=== PATIENT | male | born 1945 | race Caucasian/White ===

== ENCOUNTER → 2024-02-02 17:19 | Outpatient (REF) | payer MEDICARE, BC, SELFPAY | LOC: MRI 3T 17:19 | PROVIDERS: ATTENDING PHYSICIAN Physical Medicine & Rehabilitation; FAMILY PHYSICIAN Family Medicine | DX: M54.16 Radiculopathy, lumbar region (principal) | CPT/HCPCS: 72158; A9575 ==

== ENCOUNTER → 2024-06-24 09:13 | Outpatient (REF) | payer MEDICARE, BC, SELFPAY | LOC: HWRCS 09:13 | PROVIDERS: ATTENDING PHYSICIAN Internal Medicine Cardiovascular Disease; FAMILY PHYSICIAN Family Medicine | DX: Z95.3 Presence of xenogenic heart valve (principal) | CPT/HCPCS: 93306 ==

== ENCOUNTER → 2025-02-07 08:08 | Outpatient (REF) | payer MEDICARE, BC, SELFPAY | LOC: HWRAD 08:08 | PROVIDERS: ATTENDING PHYSICIAN Family Medicine | DX: R05.9 Cough, unspecified (principal) | CPT/HCPCS: 71046 ==

== ENCOUNTER → 2025-02-21 07:14 | Outpatient (REF) | payer MEDICARE, BC, SELFPAY | LOC: HWRAD 07:14 | PROVIDERS: ATTENDING PHYSICIAN Family Medicine | DX: R05.9 Cough, unspecified (principal) | CPT/HCPCS: 71046 ==

== ENCOUNTER → 2025-03-16 14:35 | Outpatient (REF) | payer MEDICARE, BC, SELFPAY | LOC: HWRAD 14:35 | PROVIDERS: ATTENDING PHYSICIAN Family Medicine | DX: I50.33 Acute on chronic diastolic (congestive) heart failure (principal); I77.810 Thoracic aortic ectasia | CPT/HCPCS: 71046 ==

== ENCOUNTER → 2025-03-28 07:52 | Outpatient (REF) | payer MEDICARE, BC, SELFPAY | LOC: HWRAD 07:52 | PROVIDERS: ATTENDING PHYSICIAN Family Medicine | DX: I50.32 Chronic diastolic (congestive) heart failure (principal); I48.19 Other persistent atrial fibrillation; J90 Pleural effusion, not elsewhere classified | CPT/HCPCS: 71046 ==

== ENCOUNTER 2025-04-05 17:07 | Emergency (ER) | payer MEDICARE, BC, SELFPAY ==
[2025-04-05 17:11] VITALS: BP 159/74
--- NOTE | 2025-04-05 22:06 | ED.GENMED ---
History of Present Illness
General
Chief Complaint: Skin Surface Trauma
Source: patient
Exam Limitations: none
Time Seen by Provider: 04/05/25 21:22
Nursing documentation reviewed up to this point in time: agreed with
History of Present Illness
History of Present Illness:
Patient is an 80-year-old male presents today with skin tear to his right arm from around 12 PM. reports he is on Coumadin and it took a long time to stop the bleeding. She was afraid to change the dressing. His INR was done on Thursday it was
2.6.
Patient is unsure of his last tetanus.
Past History
Past History
ED Past Medical History: Arrthythmia, HTN and Hypercholesterolemia
ED Past Surgical History: Cardiac (Aortic valve replacement, ascending thoracic aortic aneurysm repair) and Orthopedic
Social History
Tobacco: Non-smoker
Alcohol: Occasional
Drug: None
Personal:
Living: with family
Phy Exam
General Physical Exam
General Presentation: no apparent distress
General age: appears stated age
General Skin: warm and dry
General Habitus: normal
General Mental: alert
General Hydration: appears well hydrated
Neurological Exam
Neurological Exam: alert and oriented x3
Musculoskeletal Exam
Musculoskeletal Exam: other (2 skin tears to right arm over elbow region + oozing of blood no bony tenderness full ROM )
Skin Exam
Skin Exam: normal color and warm/dry
Psychiatric Exam
Psychiatric Exam: normal mood/affect
Course
Vital Signs
Initial and Last Documented VS:
Initial Vital Signs
Temp Pulse Resp BP Pulse Ox
98.5 F 61 16 159/74 98
04/05/25 17:11 04/05/25 17:11 04/05/25 17:11 04/05/25 17:11 04/05/25 17:11
Last Documented Vital Signs
Temp Pulse Resp BP Pulse Ox
98.5 F 61 16 159/74 98
04/05/25 17:11 04/05/25 17:11 04/05/25 17:11 04/05/25 17:11 04/05/25 17:11
Procedures
Laceration Closure
Right Arm:
Status of Wound: clean and other (2 separate skin tears : 1 approx 3 cm , 2nd distal approx 5 cm )
Description of Wound Edges: sharp
Preparation: cleaned with saline
Type of Closure: other (gelfoam )
MDM/Problems Addressed
MDM/Problems Addressed:
Patient with 2 separate skin tears to right arm. He is on Coumadin and had oozing of blood. (2.6 was inr 3 d ago) Gelfoam was used to stop the bleeding and nonstick dressing applied wound care reviewed. Will give follow-up for wound center.
Tetanus updated no bony injury
Chronic conditions affecting care:
on coumadin for afib
*Pulse Oximetry
SaO2: 98
Oxygen Mode of Delivery: Room air
Patient hypoxic: no
*Critical Care Note
Total Time (30-74mins, 75-104mins- exclusive of procedures): Not Applicable
ED Attending Note
-
Portions of this chart may have been created with voice recognition software.� Occasional wrong word or��sound alike� substitutions may have occurred due to the inherent limitations of voice recognition software.
Discharge Plan
Departure
Patient Disposition: Home (Routine Discharge)
Date of Disposition: 04/05/25
Time of Disposition: 22:10
Patient with high blood pressure during this ER visit?: Yes
Condition: Fair
Covid-19: Not Applicable
Discharge Problem:
Skin tear
Instructions: [facility], BLOOD PRESSURE
Prescriptions:
No Action
gabapentin 300 MG capsule
300 mg PO BID
gabapentin 100 MG capsule
100 mg PO DAILY
Magnilife Pain Relieving Foot
1 applic topical DAILY
aspirin 81 MG tablet,delayed release (DR/EC)
81 mg PO DAILY Qty: 0 0RF
fluticasone propionate [24 Hour Allergy Relief] 15.8 ML spray,suspension
15.8 ml NS DAILY
rosuvastatin 10 MG tablet
5 mg PO QPM Qty: 60 0RF
potassium chloride [Klor-Con M20] 20 MEQ tablet,ER particles/crystals
10 meq PO DAILY
lidocaine 1 PATCH adhesive patch,medicated
1 patch topical DAILY Qty: 12 0RF
Rx Instructions:
ON FOR 12 HOURS, OFF FOR 12 HOURS
furosemide 40 MG tablet
60 mg PO DAILY
atenolol 25 MG tablet
12.5 mg PO HS
amoxicillin-pot clavulanate 875-125 mg tablet
1 tab PO BID Qty: 14 0RF
Referrals:
Heladio Parra MD [Family Provider, Family Practice]
Activity Restrictions/Additional Instructions:
Keep wounds clean and dry for 24 hours after 24 hours change the outer dressing but do not remove Gelfoam. This will fall off on its own. You may reapply nonstick dressing followed by gauze and Richy. Return if any signs of infection or bleeding.
Follow-up with family doctor and or wound care as needed.
Interventions
Interventions:
*Risk Screen - Suicide Last Done: 04/05/25 17:11
*General Assessment Last Done: 04/05/25 19:58
*Neglect/Abuse Screening Last Done: 04/05/25 17:11
ED-Skin Assessment Last Done: 04/05/25 19:58
Discharge Date and Time
Print Language: PUERTO RICAN
[2025-04-05] MEDS: ADACEL 0.5 ML IM (22:15)
== END 2025-04-05 22:24 | disposition home or self-care (01) ==
LOC: EMR 17:07
PROVIDERS: EMERGENCY PHYSICIAN Emergency Medicine; FAMILY PHYSICIAN Family Medicine
DX: S51.011A Laceration without foreign body of right elbow, initial encounter (principal); I48.91 Unspecified atrial fibrillation; I10 Essential (primary) hypertension; E78.00 Pure hypercholesterolemia, unspecified; Z23 Encounter for immunization; Z79.01 Long term (current) use of anticoagulants; Z79.82 Long term (current) use of aspirin; Z95.2 Presence of prosthetic heart valve; W22.09XA Striking against other stationary object, initial encounter; Y93.01 Activity, walking, marching and hiking
CPT/HCPCS: 99282; 90471; 90715

== ENCOUNTER → 2025-04-07 12:29 | Outpatient (REF) | payer MEDICARE, BC, SELFPAY | LOC: WOUND 12:29 | PROVIDERS: ATTENDING PHYSICIAN Surgery; FAMILY PHYSICIAN Family Medicine | DX: S51.011A Laceration without foreign body of right elbow, initial encounter (principal); X58.XXXA Exposure to other specified factors, initial encounter | CPT/HCPCS: 99202 ==

== ENCOUNTER → 2025-04-11 08:19 | Outpatient (REF) | payer MEDICARE, BC, SELFPAY | LOC: HWRAD 08:19 | PROVIDERS: ATTENDING PHYSICIAN Internal Medicine Critical Care Medicine; FAMILY PHYSICIAN Family Medicine | DX: J98.4 Other disorders of lung (principal); J90 Pleural effusion, not elsewhere classified | CPT/HCPCS: 71250 ==

== ENCOUNTER 2025-08-17 14:59 | Emergency (ER) | payer MEDICARE, BC, SELFPAY ==
[2025-08-17 15:03] VITALS: BP 189/61
[2025-08-17 15:37] LABS: Hematocrit 32.9 % (39.0-52.0); Hemoglobin 10.6 g/dL (13.0-18.0); Mean Corp Hgb Conc. 32.2 g/dL (33.0-37.0); Mean Corpuscular Volume 81.0 fL (80.0-94.0); Nucleated Red Blood Cells % 0 % (-); Platelet Count 209 10^3/uL (130-400); Red Cell Dist. Width 15.1 % (11.5-14.5)
[2025-08-17 15:58] LABS: ALT (SGPT) 14 U/L (0-50); AST (SGOT) 31 U/L (17-59); Albumin 3.9 g/dl (3.5-5.0); Alkaline Phosphatase 100 U/L (38-126); Blood Urea Nitrogen 17 mg/dl (9-20); Calcium 8.9 mg/dl (8.4-10.2); Carbon Dioxide 28 mmol/L (22-30); Chloride 98 mmol/L (98-107); Glucose 181 mg/dl (70-99); Potassium 3.4 mmol/L (3.5-5.1); Sodium 134 mmol/L (135-145); Total Protein 7.8 g/dl (6.3-8.2); eGFR > 60.00
[2025-08-17 16:10] LABS: Troponin I 0.029 ng/ml
[2025-08-17 16:31] VITALS: BP 154/61
[2025-08-17 17:06] VITALS: BP 165/69
--- NOTE | 2025-08-17 17:49 | ED.GENMED ---
History of Present Illness
General
Chief Complaint: Breathing Problem
Time Seen by Provider: 08/17/25 16:40
History of Present Illness
History of Present Illness:
80-year-old male with history of chronic A-fib, CHF, prior stroke, and restrictive lung disease presents to the emergency department for evaluation of exertional dyspnea for the past several days. Denies any dyspnea or chest pain at rest. No
exertional chest pain. No leg swelling or orthopnea. No fevers or chills. Wonders whether this could be anxiety related as his brother is currently admitted to the hospital
Past History
Past History
ED Past Medical History: Arrthythmia, HTN and Hypercholesterolemia
ED Past Surgical History: Cardiac (Aortic valve replacement, ascending thoracic aortic aneurysm repair) and Orthopedic
Social History
Tobacco: Non-smoker
Alcohol: Occasional
Drug: None
Personal:
Living: with family
Review of Systems
Review of Systems
Allergies reviewed?: Yes
All Other Systems: ROS reviewed and negative except as documented in HPI and ROS
Phy Exam
Physical Exam
Physical Exam:
GEN: Well appearing, NAD, WDWN
HEENT: Oral mucosa moist, no scleral icterus
Cardiac: Regular rate and rhythm, no murmurs
Lung: No respiratory distress, no tachypnea, lungs clear however diminished bibasilar
MSK: No gross deformity or injuries, no lower extremity edema
Skin: Good color, no pallor or jaundice, no rashes
Neuro: AO x3, moves all extremities freely
Psych: Calm, cooperative
Scores
Heart Failure Risk
Heart Failure Risk Score: Not Applicable
Course
Orders/Labs/Results
Orders:
Orders
08/17/25 15:09
Electrocardiogram (*1) Urgent
Reason for Study: Chest Pain
EKG- Treatment ONCE
08/17/25 15:20
Complete Blood Count/With Diff Urgent
Comprehensive Metabolic Panel Urgent
NT-proBNP Urgent
Comment: ADD ON
Troponin I Urgent
08/17/25 16:43
Add On- LAB Urgent
Tests Added?: BNP
CR Chest - 2 Views Urgent
Comment:
Reason For Exam: SOB
Abnormal Lab Results
08/17/25
15:20
RBC 4.06 L 10^6/uL
(4.70-6.10)
Hgb 10.6 L g/dL
(13.0-18.0)
Hct 32.9 L %
(39.0-52.0)
MCH 26.1 L pg
(27.0-31.0)
MCHC 32.2 L g/dL
(33.0-37.0)
RDW 15.1 H %
(11.5-14.5)
Absolute Lymphs (auto) 0.8 L 10^3/uL
(1.2-3.4)
Lymphocytes % 17.0 L %
(20.5-51.1)
Monocytes % 10.2 H %
(1.7-9.3)
Sodium 134 L mmol/L
(135-145)
Potassium 3.4 L mmol/L
(3.5-5.1)
Glucose 181 H mg/dl
(70-99)
Total Bilirubin 1.4 H mg/dl
(0.2-1.3)
08/17/25 15:20
08/17/25 15:20
Vital Signs
Initial and Last Documented VS:
Initial Vital Signs
Temp Pulse Resp BP Pulse Ox
97.8 F 59 20 189/61 97
08/17/25 15:03 08/17/25 15:03 08/17/25 15:03 08/17/25 15:03 08/17/25 15:03
Last Documented Vital Signs
Temp Pulse Resp BP Pulse Ox
97.8 F 46 23 165/69 96
08/17/25 15:03 08/17/25 17:45 08/17/25 17:45 08/17/25 17:06 08/17/25 17:50
MDM/Problems Addressed
MDM/Problems Addressed:
Chest x-ray reveals slight increase in the left pleural effusion which is likely driving his symptoms. He had very brief hypoxia when ambulating but this rapidly recovered at rest. 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
thoracentesis will be beneficial. No clinical concern for cardiovascular/CHF etiology
Comment
Comment:
EKG independently interpreted by me shows a bradycardic A-fib at a rate of 57
*Pulse Oximetry
SaO2: 96
Oxygen Mode of Delivery: Room air
Patient hypoxic: no
*Critical Care Note
Total Time (30-74mins, 75-104mins- exclusive of procedures): Not Applicable
ED Attending Note
-
Portions of this chart may have been created with voice recognition software.� Occasional wrong word or��sound alike� substitutions may have occurred due to the inherent limitations of voice recognition software.
Discharge Plan
Departure
Patient Disposition: Home (Routine Discharge)
Date of Disposition: 08/17/25
Time of Disposition: 17:49
Patient with high blood pressure during this ER visit?: No
Discharge Problem:
Pleural effusion on left
Instructions: Pleural effusion (DC)
Prescriptions:
No Action
gabapentin 300 MG capsule
300 mg PO BID
gabapentin 100 MG capsule
100 mg PO DAILY
Magnilife Pain Relieving Foot
1 applic topical DAILY
aspirin 81 MG tablet,delayed release (DR/EC)
81 mg PO DAILY Qty: 0 0RF
fluticasone propionate [24 Hour Allergy Relief] 15.8 ML spray,suspension
15.8 ml NS DAILY
rosuvastatin 10 MG tablet
5 mg PO QPM Qty: 60 0RF
potassium chloride [Klor-Con M20] 20 MEQ tablet,ER particles/crystals
10 meq PO DAILY
lidocaine 1 PATCH adhesive patch,medicated
1 patch topical DAILY Qty: 12 0RF
Rx Instructions:
ON FOR 12 HOURS, OFF FOR 12 HOURS
furosemide 40 MG tablet
60 mg PO DAILY
atenolol 25 MG tablet
12.5 mg PO HS
amoxicillin-pot clavulanate 875-125 mg tablet
1 tab PO BID Qty: 14 0RF
Referrals:
Heladio Parra MD [Family Provider, Family Practice]
Activity Restrictions/Additional Instructions:
Follow up with your windows phone developer and discuss whether or not draining the fluid will benefit your symptoms
Interventions
Interventions:
*Risk Screen - Suicide Last Done: 08/17/25 15:03
*General Assessment Last Done: 08/17/25 17:12
*Neglect/Abuse Screening Last Done: 08/17/25 15:03
*ED COVID-19 Vaccine History Last Done: 08/17/25 17:12
*ED Influenza Vaccine History Last Done: 08/17/25 17:12
[facility] Fall Risk Assessment Tool Last Done: 08/17/25 16:00
*Nursing Disposition Last Done: 08/17/25 18:06
ED- Cardiac Assessment Last Done: 08/17/25 17:13
ED- Pulmonary Assessment Last Done: 08/17/25 17:13
Discharge Date and Time
Discharge Date/Time: 08/17/25 18:06
Print Language: ALB[place]
== END 2025-08-17 18:06 | disposition home or self-care (01) ==
LOC: EMR 14:59
PROVIDERS: Emergency Medicine; EMERGENCY PHYSICIAN Emergency Medicine; FAMILY PHYSICIAN Family Medicine
DX: J90 Pleural effusion, not elsewhere classified (principal); I48.20 Chronic atrial fibrillation, unspecified; I11.0 Hypertensive heart disease with heart failure; I50.9 Heart failure, unspecified; E78.00 Pure hypercholesterolemia, unspecified; Z86.73 Personal history of transient ischemic attack (TIA), and cerebral infarction without residual deficits; Z95.2 Presence of prosthetic heart valve
CPT/HCPCS: 99284; 71046; 80053; 83880; 84484; 85025; 93005

== ENCOUNTER 2025-08-20 14:48 | Inpatient (IN) | payer MEDICARE, BC, SELFPAY ==
[2025-08-20] VITALS (11 sets, daily range): BP systolic 144–177; BP diastolic 56–92; BMI 27.1; BMI 26.0
--- NOTE | 2025-08-20 11:16 | ED.GENMED ---
History of Present Illness
General
Chief Complaint: Breathing Problem
Source: patient and records
Exam Limitations: none
Time Seen by Provider: 08/20/25 11:04
Nursing documentation reviewed up to this point in time: agreed with
History of Present Illness
History of Present Illness:
80-year-old male with past medical history as noted presents to the ER for evaluation of worsening shortness of breath. Of note he was seen in the emergency room 3 days ago for shortness of breath and chest x-ray at that time showed progression of
a pleural effusion that was the suspected cause of his increased dyspnea. He was ultimately discharged with a plan to follow-up with his fire fighter airport on an outpatient basis to discuss possible thoracentesis. He has an appointment scheduled for
this week but over the past few days has had increasing shortness of breath which prompted him to return to the ER. He reports his symptoms seem to be worse when lying flat and particularly worse when he lays on his left side. He denies any cough
although he does report that he is just getting over a case of pneumonia for which was treated with amoxicillin. He denies any swelling in his legs�he has had swelling in the past but currently well-controlled on his diuretic; his human resources representative is
Dr. Ambrocio. He denies any fever chills or any other acute symptoms.
Past History
Past History
ED Past Medical History: Arrthythmia, HTN and Hypercholesterolemia
ED Past Surgical History: Cardiac (Aortic valve replacement, ascending thoracic aortic aneurysm repair) and Orthopedic
Social History
Tobacco: Non-smoker
Alcohol: Occasional
Drug: None
Personal:
Living: with family
Review of Systems
Review of Systems
All Other Systems: ROS reviewed and negative except as documented in HPI and ROS
Constitutional: Denies fever or chills
Respiratory: Reports trouble breathing; Denies cough
Cardiac: Denies chest pain
ABD/GI: Denies abdominal pain, nausea or vomiting
Musculoskeletal: Denies edema
Neurological: Denies headache
Phy Exam
Physical Exam
Physical Exam:
General: Awake, alert, oriented x3; no acute distress
Head: Normocephalic, atraumatic
Eyes: Conjunctiva normal, sclera anicteric
Throat: Airway intact, handling secretions
Neck: Trachea midline, no JVD noted
Lungs: Patient has mild tachypnea and is speaking in short sentences; no accessory muscle use, no cyanosis, no hypoxia; on lung auscultation he has a scattered bilateral expiratory wheeze and his breath sounds are diminished at the left lung base
Heart: Regular rate and rhythm, no murmurs, gallops, or rubs appreciated
Abd: Soft, non distended, nontender
Neuro: Grossly intact
Skin: Warm and dry
Extremities: No edema in extremities, equal pulses in all extremities
Scores
Heart Failure Risk
Heart Failure Risk Score: Not Applicable
Heart Score for Chest Pain Patients
STEMI patient?: Not applicable
Withdrawal Assessment of Alcohol
Withdrawal Assessment Completed?: Not applicable
Course
Orders/Labs/Results
Orders:
Orders
08/20/25 10:26
ECG [Electrocardiogram (*1)] Urgent
Reason for Study: Shortness of Breath
EKG- Treatment ONCE
08/20/25 11:05
CR Chest - 2 Views Urgent
Comment:
Reason For Exam: worsening SOB
08/20/25 11:10
COVID-19 Antigen Urgent
Source: Nasal Swab
Complete Blood Count/With Diff Urgent
Comprehensive Metabolic Panel Urgent
Magnesium Urgent
NT-proBNP Urgent
Troponin I Urgent
Influenza A+B Rapid Molecular Urgent
MERLE Source: Nasal Swab
Specimen Description:
Abnormal Lab Results
08/20/25
11:10
RBC 4.05 L 10^6/uL
(4.70-6.10)
Hgb 10.7 L g/dL
(13.0-18.0)
Hct 34.4 L %
(39.0-52.0)
MCH 26.4 L pg
(27.0-31.0)
MCHC 31.1 L g/dL
(33.0-37.0)
RDW 15.0 H %
(11.5-14.5)
Absolute Lymphs (auto) 0.8 L 10^3/uL
(1.2-3.4)
Absolute Monos (auto) 0.7 H 10^3/uL
(0.1-0.6)
Lymphocytes % 15.5 L %
(20.5-51.1)
Monocytes % 13.9 H %
(1.7-9.3)
Glucose 100 H mg/dl
(70-99)
08/20/25 11:10
08/20/25 11:10
Vital Signs
Initial and Last Documented VS:
Initial Vital Signs
Temp Pulse Resp BP Pulse Ox
36.5 C 51 22 177/71 96
08/20/25 10:23 08/20/25 10:23 08/20/25 10:23 08/20/25 10:23 08/20/25 10:23
Last Documented Vital Signs
Temp Pulse Resp BP Pulse Ox
36.5 C 45 20 148/59 94
08/20/25 10:23 08/20/25 13:15 08/20/25 13:15 08/20/25 13:00 08/20/25 13:15
MDM/Problems Addressed
Differential Diagnosis Includes:
Pneumonia, bronchitis, pleural effusion, CHF, pneumothorax, PE considered less likely clinically
MDM/Problems Addressed:
80-year-old male presents for evaluation of increased shortness of breath�seen a few days ago found to have increasing pleural effusion and since then has had progression of symptoms prompted return to the ER. He is hypertensive with mild tachypnea
but no hypoxia, heart rate in the 50s, no fever here. Physical exam as noted. Plan to check labs including a CBC and a CMP, proBNP. Send viral swabs. Check EKG and chest x-ray. Reassess after the above.
Labs reviewed: CBC shows stable anemia, CMP no clinically significant abnormalities. proBNP only 49 but chest x-ray concerning for moderate pulmonary edema with increasing pleural effusion left greater than right. Plan to treat with IV Lasix,
admit for continued management and consideration of thoracentesis. Discussed with hospitalist for admission.
Chronic conditions affecting care:
CHF, atrial fibrillation
*Radiology
Radiology exam reviewed: preliminary read by ED provider and radiology read reviewed
*Pulse Oximetry
SaO2: 98
Oxygen Mode of Delivery: Room air
Patient hypoxic: no (98%)
*EKG
Interpreted by ED Provider?: Yes
Comparison EKG: no changes
Heart Rate: 55
Rate: bradycardiac
Rhythm: junctional
[place]: normal axis
Interval: long QT
QRS Pattern: normal QRS
Ischemia: non-specific ST changes
*Critical Care Note
Total Time (30-74mins, 75-104mins- exclusive of procedures): Not Applicable
Data Reviewed
Review of Other/Old Records Reveals: Labs, Records and Radiology Studies
Source: patient and records
Patient Management
Discussion with other providers: Hospitalist (Discussed with hospitalist)
Escalation/DeEscalation of care consider admission/obs:
Admission indicated
ED Attending Note
-
Portions of this chart may have been created with voice recognition software.� Occasional wrong word or��sound alike� substitutions may have occurred due to the inherent limitations of voice recognition software.
Discharge Plan
Departure
Patient Disposition: Admit
Date of Disposition: 08/20/25
Time of Disposition: 13:50
Admit to doctor: Kyleigh
Presentation/result/management discussed w/ accepting MD/DO: Hospitalist
Discharge Problem:
CHF exacerbation, Pleural effusion
Prescriptions:
No Action
gabapentin 300 MG capsule
300 mg PO BID
gabapentin 100 MG capsule
100 mg PO DAILY
Magnilife Pain Relieving Foot
1 applic topical DAILY
aspirin 81 MG tablet,delayed release (DR/EC)
81 mg PO DAILY Qty: 0 0RF
fluticasone propionate [24 Hour Allergy Relief] 15.8 ML spray,suspension
15.8 ml NS DAILY
rosuvastatin 10 MG tablet
5 mg PO QPM Qty: 60 0RF
potassium chloride [Klor-Con M20] 20 MEQ tablet,ER particles/crystals
10 meq PO DAILY
lidocaine 1 PATCH adhesive patch,medicated
1 patch topical DAILY Qty: 12 0RF
Rx Instructions:
ON FOR 12 HOURS, OFF FOR 12 HOURS
furosemide 40 MG tablet
60 mg PO DAILY
atenolol 25 MG tablet
12.5 mg PO HS
amoxicillin-pot clavulanate 875-125 mg tablet
1 tab PO BID Qty: 14 0RF
Referrals:
Heladio Parra MD [Family Provider, Family Practice]
Interventions
Interventions:
*Risk Screen - Suicide Last Done: 08/20/25 10:23
*General Assessment Last Done: 08/20/25 10:23
*Neglect/Abuse Screening Last Done: 08/20/25 10:23
*ED COVID-19 Vaccine History Last Done: 08/20/25 11:01
*ED Influenza Vaccine History Last Done: 08/20/25 11:01
ED- Cardiac Assessment Last Done: 08/20/25 11:03
ED- Pulmonary Assessment Last Done: 08/20/25 11:03
Discharge Date and Time
Print Language: SRI LANKAN
[2025-08-20 11:23] LABS: Hematocrit 34.4 % (39.0-52.0); Hemoglobin 10.7 g/dL (13.0-18.0); Mean Corp Hgb Conc. 31.1 g/dL (33.0-37.0); Mean Corpuscular Volume 84.9 fL (80.0-94.0); Nucleated Red Blood Cells % 0 % (-); Platelet Count 195 10^3/uL (130-400); Red Cell Dist. Width 15.0 % (11.5-14.5)
[2025-08-20 11:49] LABS: COVID-19 Antigen Negative (Negative)
[2025-08-20 11:53] LABS: ALT (SGPT) 13 U/L (0-50); AST (SGOT) 31 U/L (17-59); Albumin 3.9 g/dl (3.5-5.0); Alkaline Phosphatase 117 U/L (38-126); Blood Urea Nitrogen 16 mg/dl (9-20); Calcium 8.9 mg/dl (8.4-10.2); Carbon Dioxide 30 mmol/L (22-30); Chloride 99 mmol/L (98-107); Estimated Creatinine Clearance 72 ml/min; Glucose 100 mg/dl (70-99); Magnesium 2.1 mg/dl (1.6-2.3); Potassium 3.5 mmol/L (3.5-5.1); Sodium 136 mmol/L (135-145); Total Protein 7.6 g/dl (6.3-8.2); eGFR > 60.00
[2025-08-20 11:57] LABS: Troponin I 0.022 ng/ml
--- NOTE | 2025-08-20 13:55 | HPS.HSE ---
Family Physician
-
Family Physician: Heladio Parra
Chief Complaint
-
Shortness of breath
History of Present Illness
Patient was at the bedside while obtaining history
80-year-old male with a known history of aortic valve replacement with a bioprosthetic, mixed hyperlipidemia, aortic atherosclerosis, chronic diastolic heart failure, history of aortic root repair, peripheral neuropathy, peripheral vascular disease,
persistent A-fib on Coumadin currently presented to the ER due to exertional dyspnea, patient has shortness of breath when he lays on his left side. He has orthopnea, felt his body was swollen. Denies cough, chest pain, palpitation, fever, chills
but he had pneumonia for which was treated with amoxicillin previously within 1 month. His primary tube drawing supervisor is .
He was recently admitted to the [facility] ER last week due to the similar exertional dyspnea, recommended to follow-up with his uncrater to discuss regards to thoracentesis for his left-sided pleural effusion.
Medical History
Past Medical History
Past Medical History: Reports Arrhythmia, HTN, Hypercholesterolemia and Other (Aortic valve replacement, ascending thoracic arctic aneurysm repair, BPH, neuropathy)
Past Surgical History: Reports Orthopedic
Social History
Tobacco: Former Smoker (For more than 25 years)
Alcohol: None
Drug: None
Personal:
Living: With Family
Employment: Not Employed
Family History
Family History: Not pertinent
Allergies / Home Medications
Allergies
Allergy/AdvReac Type Severity Reaction Status Date / Time
Sulfa (Sulfonamide Allergy Unknown Hives Verified 08/20/25 10:22
Antibiotics)
sulfamethoxazole Allergy Unknown Hives Verified 08/20/25 10:22
zoster vaccine live Allergy Unknown Rash Verified 08/20/25 10:22
atorvastatin Allergy Unknown Verified 08/20/25 10:22
trazodone Allergy swollen Verified 08/20/25 10:22
tongue
trazodone HCl (From Desyrel) Allergy swollen Verified 08/20/25 10:22
tongue
trimethoprim Allergy Rash Verified 08/20/25 10:22
trazodone HCl Allergy Unknown swollen Uncoded 08/17/25 15:02
tongue
'tricyclates' Allergy swollen Uncoded 08/17/25 15:02
tongue
Allergies reflects when Allergies were last updated in [employer].
Home Medications with original date entered in [employer]
Allergy/Medication List:
Home Medications
gabapentin 300 mg capsule 300 mg PO BID 11/04/16
Magnilife Pain Relieving Foot 1 applic topical DAILY 10/18/17
aspirin 81 mg tablet,delayed release 81 mg PO DAILY ##0 10/23/17
lidocaine 5 % topical patch 1 patch topical DAILY #12 patches 10/15/18
potassium chloride 20 mEq tablet,extended release(part/cryst) (Klor-Con M) 10 meq PO DAILY 10/15/18
furosemide 40 mg tablet 60 mg PO DAILY 04/26/21
rosuvastatin 5 mg tablet 5 mg PO QPM 08/20/25
warfarin 1 mg tablet (Jantoven) 1.5 mg PO DAILY 08/20/25
Review of Systems
-
History Source: Patient
Constitutional: Reports No Symptoms
Physical Exam
Vital Signs
Vital Signs
Temp Pulse Resp BP Pulse Ox
97.7 F 45 20 148/59 94
08/20/25 10:23 08/20/25 13:15 08/20/25 13:15 08/20/25 13:00 08/20/25 13:15
Physical Exam
General: No Apparent Distress
HEENT: Moist mucous membranes
Respiratory: Other (Left lower lobe crackles present with reduced breath sounds.)
Cardiac: S1/S2 and Bradycardia
GI: Soft, Non Tender and Non Distended
Musculoskeletal: No Clubbing and No Cyanosis
Skin: Warm
Neuro: AO x 3
Hematologic/Lymphatic: No Lymphadenopathy
Psych: Calm
Laboratory Results
-
08/20/25 11:10
08/20/25 11:10
Laboratory Results
Total Bilirubin 1.3 mg/dl (0.2-1.3) 08/20/25 11:10
AST 31 U/L (17-59) 08/20/25 11:10
ALT 13 U/L (0-50) 08/20/25 11:10
Alkaline Phosphatase 117 U/L (38-126) 08/20/25 11:10
Troponin I 0.022 ng/ml 08/20/25 11:10
Impression/Plan
-
80-year-old male with HFpEF, persistent AF, HTN, HLD, neuropathy, ED, hypogonadism, s/p TAVR and aortic root repair, PVD s/p LLE vein stripping, H/O left occipital CVA, recent pneumonia treated with amoxicillin presenting to the hospital today
with shortness of breath. Was seen in the ED 3 days ago for similar symptoms with chest x-ray showing progressed pleural effusion, discharged from the ED with plan to follow-up with uncrater as an OP for consideration of thoracentesis.
# Shortness of breath with moderate sized left pleural effusion secondary to acute on chronic heart failure with preserved ejection fraction:
Bradycardia with HR 40, BP 170/71
Reduced breath sounds along with crackles at bilateral lower lobes.
BNP 459 normal
Troponin high 0.022 normal
COVID, flu negative
On 08/20 chest x-ray:
1. Moderate interstitial and alveolar cardiogenic pulmonary edema.
2. Moderate-sized left pleural effusion.
3. Small right pleural effusion.
4. Mild cardiomegaly.
5. Previous aortic valve replacement.
On 08/17 chest x-ray:
Small to moderate left pleural effusion. This effusion appears slightly greater in size on the frontal view, although similar in appearance on the lateral view.
Parenchymal opacity within the left lower lung, likely compressive atelectasis.
Small right pleural effusion, stable.
Cardiomegaly with no convincing evidence for active vascular congestion.
Plan:
IV Lasix 60 mg administered at ED
Monitor BMP
Monitor I's/O
Monitor weight
Order TTE
Consider SGLT2 inhibitors and further GDMT per left ventricular ejection fraction.
Consult tube drawing supervisor
[employer] consulted for thoracentesis
Follow-up fluid analysis results along with lights criteria.
Demi Chef consult in future
Differential diagnosis for left-sided pleural effusion probably secondary to congestive heart failure or by given recent history of recent pneumonia suspecting parapneumonic effusion.
# Paroxysmal atrial fibrillation:
HR 45/min
Held Home regimen includes atenolol.
May require pacemaker placement, cardiology consulted.
Continue to monitor telemetry.
#QTc prolongation:
ECG on arrival with QTc 560 ms.
Does not include QTc prolonging agents.
K 3.5 and mag 2.1.
Holding home beta-song as above.
Will monitor on telemetry and trend QTc.
Plan:
Replete K for goal >4 and magnesium for goal >2
Diet -- No added salt
DVT -- SQ Lovenox
Code -- DNR
Tomorrow plan:
Thoracentesis for left-sided pleural effusion
Currently on no added salt diet
Monitor telemetry for QT prolongation,
Check INR by given the history of Coumadin
Beta-blockers on hold due to bradycardia.
Replenish potassium, magnesium by given goal level
Consult tube drawing supervisor
Follow-up with thyroid consultation
Follow-up for PT, OT evaluation
Case management for disposition status
Monitor I's/O, weight, BMP
Consider SGLT2 inhibitor to restart.
--- NOTE | 2025-08-20 14:08 | W.PN.UPDATE ---
Update Note
Progress Note Update
80-year-old male with HFpEF, persistent AF on warfarin, HTN, HLD, neuropathy, ED, hypogonadism, s/p TAVR and aortic root repair, PVD s/p LLE vein stripping, H/O left occipital CVA presenting to the hospital today with shortness of breath. Was
seen in the ED 3 days ago for similar symptoms with chest x-ray showing progressed pleural effusion. Was ultimately discharged from the ED with plan to follow-up with harvest worker field crop as an OP for consideration of thoracentesis. Continued to have
dyspnea and returned to the emergency department. Symptoms worse while lying supine, and on left side. Recently completed course of antibiotics for community-acquired pneumonia. Heart rate 45/min on arrival though otherwise vital signs stable on
room air. ECG with junctional rhythm, QTc 560 ms, no acute ST or T wave changes. Labs with hemoglobin 10.7, BNP 489, troponin 0.022. Viral panel negative. CXR demonstrated moderate interstitial pulmonary edema with moderate left pleural effusion
and small right pleural effusion. IV Lasix given in the ED.
AO x 4, NAD, well-nourished. Regular rhythm with bradycardic rates, ROSA, no gallops, normal S1 and 2. Reduced breath sounds at the left base, crackles at the right base, nonlabored. Benign abdomen. Trace LE edema, palpable pulses, skin warm and
dry. No FND or CN deficits apparent
#Acute on chronic HFpEF. Mild decompensation, BNP only 459. Agree with short course of IV diuretic, will transition to Lasix 60 mg IV daily and monitor BMP + I's and O's + weights. Order TTE and consider SGLT2i in further GDMT per LVEF.
Cardiology consult
#Junctional bradycardia. HR 45/min in the ED, Home regimen includes atenolol. Does have associated AF, question sick sinus syndrome. May require pacemaker placement, cardiology consulted. Hold atenolol for now. Continue to monitor telemetry.
#Moderate left pleural effusion. Differentials include CHF related though did recently have pneumonia and cannot rule out parapneumonic effusion or empyema. Will consult IR for diagnostic and therapeutic thoracentesis. Check labs for lights
criteria, cell count, pH, cytology, glucose level, culture. Consider pulmonology consult
#QTc prolongation. ECG on arrival with QTc 560 ms. Does not include QTc prolonging agents. K 3.5 and mag 2.1. Holding home beta-song as above. Will monitor on telemetry and trend QTc. Replete K for goal >4 and magnesium for goal >2
Diet -- No added salt
DVT -- Home warfarin 1.5 mg QPM, INR goal 2-3
Code -- DNR
I have personally evaluated the patient at the bedside in the ED. I will be admitting [place] to telemetry. He is at high risk for worsening morbidity due to decompensated heart failure and require intensive monitoring of his BMP and
readjustment of his diuretic regimen. I have discussed this case with the ED attending and concrete rubber. I reviewed the case with the resident and agree with all documentation unless otherwise specified. Please see resident H&P for more detail
once available
[2025-08-20] MEDS: KCL 40 MEQ PO (15:17)
--- NOTE | 2025-08-20 15:29 | EDCM ---
Reviewed chart. Pt has a history of aortic valve replacement, arrhythmia, HTN, Hypercholesterolemia.
I met with pt and his bedside in ED. Pt is being admitted for CHF and pleural effusion.
[place] [address] [place] [address] [facility]. He is independent in ADLs, personal care and ambulation at baseline. Does not use assistive device.
Confirms prescription coverage.
No hx VN or SNF.
PCP: Heladio Parra
Pharmacy: [facility] and [facility] for mail order
Anticipate discharge home when medically stable, CM will continue to follow for all discharge planning needs.
[2025-08-20 15:42] LABS: INR 2.36; PT 26.0 Sec (11.4-14.6)
--- NOTE | 2025-08-20 15:51 | CON.CAR ---
Consultation
Consultation Request
Date/Time Consultation Requested: 08/20/2025 14: 00
Date/Time Consultation Performed: 08/20/2025 15: 30
Requesting Provider: Ilya
Performing Provider: Leah
Reason for Consultation: Bradycardia, CHF
Medical History
-
Chief Complaint: Shortness of breath
History of Present Illness:
Ben has a history of tissue AVR with a ascending aortic root replacement in October 2017, permanent A-fib on Coumadin, chronic diastolic CHF, hypertension, CVA, hyperlipidemia. He presents with worsening shortness of breath 5 pound weight gain.
This occurred over the last 5 days. Of note he was seen in our office in June [address] of the chest in April 2025 revealed evidence of CHF. He was feeling well at that time. He was reportedly on Lasix 80 mg daily at that time the
patient reports alternating Lasix 80 with 60 mg dosing. Denies chest pain.
Past Medical History
Past Medical History: Other (See HPI, also history of left occipital CVA, PVD, kidney stones, neuropathy, erectile dysfunction, hypogonadism)
Past Surgical History: Other (Right rotator repair, left lower extremity vein stripping, tonsillectomy, left knee scope, lumbar spine surgery, cervical spine surgery, left elbow tear repair, lithotripsy renal calculi, bovine AVR and ascending aortic
root replacement 2018, cataracts)
Social History
Tobacco: Non-Smoker
Alcohol: Occasional
Drug: None
Personal:
Living: With Family
Employment: Retired
Family History
Family History: Other (Father at 85 of emphysema, mother at 83 and had A-fib and a stroke)
Allergies / Home Medications
Allergy/AdvReac Type Severity Reaction Status Date / Time
Sulfa (Sulfonamide Allergy Unknown Hives Verified 08/20/25 10:22
Antibiotics)
sulfamethoxazole Allergy Unknown Hives Verified 08/20/25 10:22
zoster vaccine live Allergy Unknown Rash Verified 08/20/25 10:22
atorvastatin Allergy Unknown Verified 08/20/25 10:22
trazodone Allergy swollen Verified 08/20/25 10:22
tongue
trazodone HCl (From Desyrel) Allergy swollen Verified 08/20/25 10:22
tongue
trimethoprim Allergy Rash Verified 08/20/25 10:22
trazodone HCl Allergy Unknown swollen Uncoded 08/17/25 15:02
tongue
'tricyclates' Allergy swollen Uncoded 08/17/25 15:02
tongue
�Medication �Instructions �Recorded �Confirmed �Type
gabapentin 300 mg capsule 300 mg PO BID 11/04/16 08/20/25 History
Magnilife Pain Relieving Foot 1 applic topical DAILY 10/18/17 08/20/25 History
aspirin 81 mg tablet,delayed 81 mg PO DAILY ##0 10/23/17 08/20/25 Rx
release
lidocaine 5 % topical patch 1 patch topical DAILY #12 patches 10/15/18 08/20/25 Rx
potassium chloride 20 mEq 10 meq PO DAILY 10/15/18 08/20/25 History
tablet,extended
release(part/cryst) (Klor-Con M)
furosemide 40 mg tablet 60 mg PO DAILY 04/26/21 08/20/25 History
rosuvastatin 5 mg tablet 5 mg PO QPM 08/20/25 08/20/25 History
warfarin 1 mg tablet (Jantoven) 1.5 mg PO DAILY 08/20/25 08/20/25 History
Review of Systems
-
History Source: Patient
All other systems: Negative unless noted
Constitutional: Weight Gain
EENT: No Symptoms
Respiratory: Trouble Breathing
Cardiac: No Symptoms
Abdomen/GI: No Symptoms
: No Symptoms
Musculoskeletal: No Symptoms
Skin: No Symptoms
Neurological: No Symptoms
Endocrine: No Symptoms
Hematologic/Lymphatic: No Symptoms
Physical Exam
Vital Signs
Temp Pulse Resp BP Pulse Ox
97.7 F 50 25 173/73 94
08/20/25 10:23 08/20/25 15:18 08/20/25 15:18 08/20/25 15:18 08/20/25 15:18
Lab Results
08/20/25 11:10
08/20/25 11:10
Troponin I 0.022 ng/ml 08/20/25 11:10
Ubr-U-Yvsztqfhpam Pept 489 pg/ml 08/20/25 11:10
General: Well developed, well nourished in NAD.
Neck: Supple, no JVD, HJR, carotids +2 B/L, no bruits bilaterally.
Heart: Non displaced PMI, RRR, no murmurs, No S3, S4, no rubs.
Lungs: Decreased breath sounds right base
Abdomen: Normal bowel sounds, soft, non-tender, non-distended.
Extremities: No clubbing, cyanosis or edema bilaterally.
Neuro: Grossly nonfocal, awake, alert and oriented x3.
Impression / Plan
-
Impression:
Acute diastolic CHF
Left pleural effusion possibly due to CHF
Junctional rhythm
History of tissue AVR/aortic root reconstruction 2017
Persistent atrial fibrillation on chronic Coumadin
Hypertension
Hyperlipidemia
History of CVA
Echocardiogram 06/24/2024: Ejection fraction 60 to 65%, bovine AVR with mean gradient of 8 mmHg
Plan:
He presents with evidence of CHF with 5 pound weight gain and bilateral pleural effusions with left greater than right
Will treat with IV Lasix and assess response
Will check echocardiogram
IR to do thoracentesis
He has a junctional rhythm at present. Of note atenolol was stopped in the past by our office. No indication for pacer implant at present as he remains asymptomatic.
He is on Coumadin with INR of 2.36 on admission
Data Reviewed
-
EKG: Tracing Personally Visualized and interpreted
Radiology: Report Reviewed by me
CT Scan: Report Reviewed by me
Medical Tests (Nuc Med, Echo etc): Report Reviewed by me
Labs: Labs Reviewed by me
Old Records: Reviewed
[2025-08-20 17:50] LABS: LDH 240 U/L (120-246)
[2025-08-20] MEDS: CRESTOR 5 MG PO (18:15)
[2025-08-20] MEDS: COUMADIN 1.5 MG PO (18:15)
[2025-08-20] MEDS: LASIX 40 MG IV (18:16)
[2025-08-20] MEDS: TYLENOL 650 MG PO ×2 (18:16→22:41)
--- NOTE | 2025-08-20 18:38 | PTCARENOTE ---
Received pt from ER into 2251. Pt is AAOx3 Junction on the monitor vss denies lightheadedness or dizziness. + GONCALVES lungs diminished in bases 97% sat on RA. Call olguin within reach.
[2025-08-20] MEDS: NEURONTIN 300 MG PO (20:26)
[2025-08-20] MEDS: KCL 20 MEQ PO (22:41)
[2025-08-21] VITALS (11 sets, daily range): BP systolic 49–185; BP diastolic 54–92; BMI 26.0
[2025-08-21] MEDS: TYLENOL PO ×2 (01:02→05:15)
--- NOTE | 2025-08-21 01:05 | PTCARENOTE ---
Received pt @ change of shift. AAOx3, Junctional on monitor, moises into 30s @ times. Other VSS. Denies SOB and pain when resting. Discussed plan of care for evening. Pt verbalizes understanding. Plan of care ongoing. Call olguin within reach.
[2025-08-21 04:59] LABS: Hematocrit 33.1 % (39.0-52.0); Hemoglobin 10.6 g/dL (13.0-18.0); Mean Corp Hgb Conc. 32.0 g/dL (33.0-37.0); Mean Corpuscular Volume 83.0 fL (80.0-94.0); Platelet Count 199 10^3/uL (130-400); Red Cell Dist. Width 15.1 % (11.5-14.5)
[2025-08-21 05:13] LABS: INR 2.33; PT 25.8 Sec (11.4-14.6)
[2025-08-21 05:20] LABS: ALT (SGPT) 13 U/L (0-50); AST (SGOT) 31 U/L (17-59); Albumin 3.9 g/dl (3.5-5.0); Alkaline Phosphatase 115 U/L (38-126); Blood Urea Nitrogen 15 mg/dl (9-20); Calcium 9.0 mg/dl (8.4-10.2); Carbon Dioxide 29 mmol/L (22-30); Chloride 101 mmol/L (98-107); Estimated Creatinine Clearance 72 ml/min; Glucose 87 mg/dl (70-99); HDL Cholesterol 39 mg/dl; LDH 231 U/L (120-246); LDL Cholesterol, Calculated 52 mg/dl; Magnesium 2.0 mg/dl (1.6-2.3); Potassium 4.6 mmol/L (3.5-5.1); Sodium 137 mmol/L (135-145); Total Protein 7.7 g/dl (6.3-8.2); Very Low Density Lipoprotein 11 mg/dl (0-30); eGFR > 60.00
--- NOTE | 2025-08-21 07:08 | W.PN.HOSP.TC ---
Addendum entered and electronically signed by Yanet Shaikh MD 08/21/25 15:53:
I saw and evaluated the patient independently. I reviewed and discussed the resident�s note and agree with findings and plan as documented by Dr. Sebastian.
GENERAL: well developed, well nourished, male in no apparent distress
HEENT: NC/AT--no O2
HEART: irreg irreg +S1, +S2
LUNGS : crackles bilaterally
ABDOM: soft, nontender, nondistended, + bowel sounds
EXT: no cyanosis, clubbing, or edema
NEUROLOGIC: grossly intact
Acute on chronic HFpEF-- Mild decompensation with BNP of 459 on admission--apprec cards--cont diuresis--await ECHO
Junctional bradycardia with chronic atrial fibrillation--hold atenolol--apprec cards--no indication for pacer--cont BRAND name Deejayven
Moderate left pleural effusion--s/p thoracentesis--transudative as expected- likely due to CHF
Essential Hypertension-Patient on atenolol at home however this has been placed on hold given the bradycardia
Hyperlipidemia- Continue rosuvastatin 5 mg daily
QTc prolongation--ECG on arrival with QTc 560 ms. Holding home beta-song as above. Replete K for goal >4 and magnesium for goal >2. Will monitor on telemetry and trend QTc.
Chronic atrial fibrillation- On chronic Coumadin; unclear why he is not on DOAC; he refuses today to make any changes
history of CVA- On aspirin 81 mg
DVT - Home warfarin 1.5 mg QPM, INR goal 2-3
Code status- DNR
Original Note:
Today's Communication/Plan
-
Continue IV Lasix
Echo today
Labs in the morning
anticipate dc tomorrow if stable
Assessment / Plan
Assessment / Plan
80-year-old male with HFpEF, persistent AF on warfarin, HTN, HLD, neuropathy, ED, hypogonadism, s/p TAVR and aortic root repair, PVD s/p LLE vein stripping, H/O left occipital CVA presented with shortness of breath.
#Acute on chronic HFpEF.
- Mild decompensation with BNP of 459 on admission.
- Cardiology input appreciated
- Continue IV diuretic Lasix 40 mg IV BID; patient on furosemide 60 mg daily at home
- monitor BMP + I's and O's + weights.
- Check TTE and consider SGLT2i in further GDMT per LVEF.
#Junctional bradycardia.
- HR 45/min in the ED, Home regimen includes atenolol.
- Does have associated AF, sick sinus syndrome?.
- Hold atenolol for now. Continue to monitor telemetry.
- cardio following; No indication for pacer implant at present as he remains asymptomatic.
#Moderate left pleural effusion.
- Possibly due to CHF however could be sec to recent pneumonia and cannot rule out parapneumonic effusion or empyema.
- IR for diagnostic and therapeutic thoracentesis. ; 1000 cc removed
- Labs values consistent with transudative; which is likely secondary to heart failure
#Hypertension
-Patient on atenolol at home however this has been placed on hold given the bradycardia
#Hyperlipidemia
- Continue rosuvastatin 5 mg daily
#QTc prolongation.
ECG on arrival with QTc 560 ms. Does not include QTc prolonging agents. K 3.5 and mag 2.1. Holding home beta-song as above. Will monitor on telemetry and trend QTc.
Replete K for goal >4 and magnesium for goal >2
# Persistent atrial fibrillation
- On chronic Coumadin; unclear why he is not on DOAC; he refuses today to make any changes
# history of CVA
- On aspirin 81 mg
Diet -No added salt
DVT - Home warfarin 1.5 mg QPM, INR goal 2-3
Code - DNR
Anticipated Discharge: Within 24 hours
Subjective/Interval History
-
Date of Service: August 21, 2025
Blood pressure slightly on the higher side however patient reports no symptoms.
Overnight couple of episodes when the heart rate was in 30s currently at 49
Other vitals remained stable
Patient offers no new complaints
Objective Data
-
Labs:
Laboratory Results
08/21/25
04:20
WBC 5.1
Hgb 10.6 L
Hct 33.1 L
Plt Count 199
PT 25.8 H
INR 2.33
Sodium 137
Potassium 4.6 D
Chloride 101
Carbon Dioxide 29
BUN 15
Creatinine 0.9
Glucose 87
Calcium 9.0
Total Bilirubin 1.7 H
AST 31
ALT 13
Alkaline Phosphatase 115
Vital Signs:
Vital Signs
Temp Pulse Resp BP Pulse Ox
97.6 F 40 20 168/54 94
08/21/25 04:30 08/21/25 04:10 08/21/25 04:30 08/21/25 04:10 08/21/25 04:30
I&O
08/20/25 08/21/25 08/22/25
06:59 06:59 06:59
Output Total 300 / 300
Balance -300 / -300
Review of Systems
-
History Source: Patient
Respiratory: Reports Trouble Breathing; Denies Cough
Cardiac: Denies Chest Pain
Abdomen/GI: Denies Abdominal Pain
Genitourinary: Denies Dysuria
Neuro: Denies Dizzy, Headache or Weakness
Physical Exam
-
General: Well Developed, Well Nourished and No Apparent Distress
Respiratory: Non Labored Respirations and Decreased Breath Sounds (Bilateral lower extremities)
Cardiac: Regular Rhythm and Bradycardic
GI: Soft, Nontender and Nondistended
Neuro: Awake, Alert and Oriented
Psych: Calm
Data Reviewed
-
Diagnostic Radiology: Report Reviewed by me, Discussed with Physician and Discussed with Patient
Labs: Labs Reviewed by me, Discussed with Physician and Discussed with Patient
--- NOTE | 2025-08-21 07:45 | PTCARENOTE ---
Patient received at change of shift out of bed ambulating independently in the room w/o issue. Denies pain. Denies feeling lightheaded or dizzy. Junctional rhythm on telemetry with a prolonged QT interval. Discussed plan of care. Call olguin within
reach.
--- NOTE | 2025-08-21 08:54 | W.PN.CARDCBS ---
Addendum entered and electronically signed by Helena Reddy DO 08/21/25 20:56:
I saw and examined the patient.
The Dental Surgeon's note was reviewed and I agree with the note.
Comment: Patient was seen and examined with at bedside following thoracentesis.
GEN: No distress, awake, alert, oriented x3
HEENT: mmm
LUNGS: Bronchovesicular breath sounds, decreased with fine crackles bilaterally. No wheezes.
CV: Irreg, S1/S2, 1/6 murmur
EXT: trace LE edema
NEURO: Gross non-focal
Plan:
Acute on chronic heart failure preserved ejection fraction with left-sided pleural effusion
-ProBNP 489.
-s/p L thoracentesis this AM w/ 1000 cc removed.
-Continue diuresis with IV lasix 40 mg BID for the next 24 hours, potentially transition to oral Lasix tomorrow.
-Continue to follow daily weights, I&Os.
-Echo pending today.
History of atrial fibrillation with slow ventricular response currently in a junctional rhythm
-Patient denies dizziness or lightheadedness.
- Avoid AV demian blocking agent
-No indication for PPM at this time as he remains asymptomatic.
-Consider outpatient cardiac monitoring
-Continues on Coumadin for h/o afib. INR 2.33 08/21.
History of tissue AVR/aortic root reconstruction in 2018
- 2D echocardiogram pending
History of stroke�no active issues
-Continue Crestor 5mg daily. LDL 52.
- Continue anticoagulation
Original Note:
Today's Communication / Plan
-
Continue IV lasix
Check echo
Impression / Plan
-
PCP: Dr. Parra
Notereader: Dr. Ambrocio
Impression:
Acute on chronic HFpEF
L pleural effusion
s/p L thoracentesis w/ 1000 cc removed 08/21/2025
Junctional rhythm
h/o tissue AVR/aortic root reconstruction 2017
Persistent atrial fibrillation
Chronic Coumadin anticoagulation
Hypertension
Hyperlipidemia
h/o CVA
Echo 06/24/2024: EF 60 to 65%, bovine AVR with mean gradient of 8 mmHg
Echo 08/21/2025: Study pending
Plan:
-Presented with weight gain and SOB. Admitted with acute CHF and b/l pleural effusions. ProBNP only 489.
-s/p L thoracentesis this AM w/ 1000 cc removed. Feels better, but still some SOB noted.
-Continue diuresis with IV lasix 40 mg BID. Weight 191 lbs, stable overnight.
-Continue to follow daily weights, I&Os.
-Creat stable at 0.9 this AM. Follow.
-Echo pending today. Prior echo in 2023 w/ preserved EF as noted above.
-Bradycardia noted, asymptomatic. Remains off atenolol.
-No indication for PPM at this time as he remains asymptomatic.
-Continues on Coumadin for h/o afib. INR 2.33 08/21.
-Continue Crestor 5mg daily. LDL 52.
Progress Note - Notereader
Subjective
Date of Service: August 21, 2025
Breathing improving following thoracentesis, still w/ some SOB.
Objective
Labs:
08/21/25 04:20
08/21/25 04:20
Labs
Hgb 10.6 g/dL (13.0-18.0) L 08/21/25 04:20
Hct 33.1 % (39.0-52.0) L 08/21/25 04:20
Plt Count 199 10^3/uL (130-400) 08/21/25 04:20
PT 25.8 Sec (11.4-14.6) H 08/21/25 04:20
INR 2.33 08/21/25 04:20
Sodium 137 mmol/L (135-145) 08/21/25 04:20
Potassium 4.6 mmol/L (3.5-5.1) D 08/21/25 04:20
BUN 15 mg/dl (9-20) 08/21/25 04:20
Creatinine 0.9 mg/dL (0.7-1.3) 08/21/25 04:20
Glucose 87 mg/dl (70-99) 08/21/25 04:20
Troponins
08/20/25
11:10
Troponin I 0.022
Vital Signs and I&O:
Vital Signs
Temp Pulse Resp BP Pulse Ox
97.5 F 44 19 127/56 95
08/21/25 08:05 08/21/25 08:47 08/21/25 08:47 08/21/25 08:47 08/21/25 08:05
Vital Signs
Temp Pulse Resp BP Pulse Ox
97.5 F 44 19 127/56 95
08/21/25 08:05 08/21/25 08:47 08/21/25 08:47 08/21/25 08:47 08/21/25 08:05
Intake & Output
08/19/25 08/20/25 08/21/25 08/22/25
06:59 06:59 06:59 06:59
Output Total 300 / 300
Balance -300 / -300
Physical Exam
Physical Exam
GEN: No distress, awake, alert, oriented x3
HEENT: supple, anicteric, mmm
LUNGS: few crackles at bases
CV: Irreg, S1/S2, 1/6 murmur
EXT: no clubbing or cyanosis, trace LE edema
NEURO: Gross non-focal
SKIN: warm, dry, no rash
[2025-08-21] MEDS: LASIX 40 MG IV ×2 (09:25→15:35)
[2025-08-21] MEDS: TYLENOL 650 MG PO ×4 (09:25→19:30)
[2025-08-21] MEDS: ASPIR LOW (ENTERIC COATED) 81 MG PO (09:25)
[2025-08-21] MEDS: NEURONTIN 300 MG PO ×2 (09:25→19:30)
--- NOTE | 2025-08-21 09:46 | PTCARENOTE ---
Patient to IR at approximately 0745 for thoracentesis. Returned at approximately 0915. Denies pain. Left lateral back puncture site with bandaid C/D/I. Care ongoing.
--- NOTE | 2025-08-21 09:53 | CM ---
Reviewed chart. Met with Mr. Vegas to review discharge plans. He states prior to admission he resides with his spouse in a one story home with one step to enter. He states he resides in a 55 [address] [facility]. He states he has been
there since 2001. He states prior to admission he was independent with ambulation and adls. He states he has an INR machine at home and no other DME. [facility] manages his INR. He states he has a prescription plan and uses [facility]. He states he has [facility] after his heart surgery. Medical work-up in progress. The discharge plan is to return home with his spouse when medically stable.
[2025-08-21 10:36] LABS: Body Fluid Second Tech EF
[2025-08-21] MEDS: CRESTOR 5 MG PO (17:27)
[2025-08-21] MEDS: COUMADIN 1.5 MG PO (17:27)
--- NOTE | 2025-08-22 01:02 | PTCARENOTE ---
Received pt @ change of shift. Resting in bed, breathing rhythmic, eyes closed. Pt responded to verbal stimulation-- verbalizes being very tired from not sleeping much night before. Thoracentesis puncture clean, dry, and intact. VSS-- Junctional on
monitor. Discussed plan of care. Pt verbalizes understanding. Plan of care ongoing. Call olguin within reach.
[2025-08-22] MEDS: TYLENOL PO ×2 (01:14→05:08)
[2025-08-22 01:46] VITALS: BP 154/69
[2025-08-22 02:15] VITALS: BMI 25.3
[2025-08-22 03:21] LABS: Hematocrit 34.1 % (39.0-52.0); Hemoglobin 11.1 g/dL (13.0-18.0); Mean Corp Hgb Conc. 32.6 g/dL (33.0-37.0); Mean Corpuscular Volume 80.8 fL (80.0-94.0); Platelet Count 227 10^3/uL (130-400); Red Cell Dist. Width 15.2 % (11.5-14.5)
[2025-08-22 03:51] LABS: ALT (SGPT) 13 U/L (0-50); AST (SGOT) 30 U/L (17-59); Albumin 3.8 g/dl (3.5-5.0); Alkaline Phosphatase 117 U/L (38-126); Blood Urea Nitrogen 17 mg/dl (9-20); Calcium 8.8 mg/dl (8.4-10.2); Carbon Dioxide 29 mmol/L (22-30); Chloride 99 mmol/L (98-107); Estimated Creatinine Clearance 72 ml/min; Glucose 91 mg/dl (70-99); Potassium 4.0 mmol/L (3.5-5.1); Sodium 135 mmol/L (135-145); Total Protein 7.7 g/dl (6.3-8.2); eGFR > 60.00
--- NOTE | 2025-08-22 07:03 | W.PN.HOSP.TC ---
Addendum entered and electronically signed by Yanet Shaikh MD 08/22/25 14:35:
I saw and evaluated the patient independently. I reviewed and discussed the resident�s note and agree with findings and plan as documented by Dr. Sebastian.
GENERAL: well developed, well nourished, male in no apparent distress
HEENT: NC/AT--no O2
HEART: irreg irreg +S1, +S2
LUNGS : crackles bilaterally
ABDOM: soft, nontender, nondistended, + bowel sounds
EXT: no cyanosis, clubbing, or edema
NEUROLOGIC: grossly intact
Acute on chronic HFpEF-- Mild decompensation with BNP of 459 on admission--apprec cards--cont diuresis, changing to oral lasix-- ECHO with normal EF and dilated right ventricle, mild to mod tricuspid regurg with severe pulm HTN and elevated pulm
artery pressures
Junctional bradycardia with chronic atrial fibrillation--stop atenolol at discharge--apprec cards--no indication for pacer--cont BRAND name Deejayven
Moderate left pleural effusion--s/p thoracentesis--transudative as expected- likely due to CHF--repeat CXR with residual effusion, medical management--not enough to tap
Essential Hypertension--Patient on atenolol at home however this has been placed on hold given the bradycardia
Hyperlipidemia- Continue rosuvastatin 5 mg daily
QTc prolongation--ECG on arrival with QTc 560 ms. Holding home beta-song as above. Replete K for goal >4 and magnesium for goal >2. Will monitor on telemetry and trend QTc.
Chronic atrial fibrillation- On chronic Coumadin; unclear why he is not on DOAC; he refuses today to make any changes
history of CVA- On aspirin 81 mg
DVT - Home warfarin 1.5 mg QPM, INR goal 2-3
Code status- DNR
D/C
Original Note:
Today's Communication/Plan
-
Switch IV Lasix to p.o.; 40 mg twice daily
Discharge home today
will need updaed echo outpatient
Assessment / Plan
Assessment / Plan
80-year-old male with HFpEF, persistent AF on warfarin, HTN, HLD, neuropathy, ED, hypogonadism, s/p TAVR and aortic root repair, PVD s/p LLE vein stripping, H/O left occipital CVA presented with shortness of breath.
#Acute on chronic HFpEF.
- Mild decompensation with BNP of 459 on admission.
- Cardiology input appreciated
- Switch IV Lasix to p.o. Lasix at discharge: Will discharge on Lasix 40 mg twice daily per cardio recommendations
- consider SGLT2i in further GDMT per LVEF with outpatient cardiology follow-up
- Echo with preserved ejection fraction; will need repeat with outpatient cardiology
#Junctional bradycardia.
- HR 45/min in the ED, Home regimen includes atenolol.
- Does have associated AF
- cardio following; No indication for pacer implant at present as he remains asymptomatic.
#Moderate left pleural effusion.
- Possibly due to CHF however could be sec to recent pneumonia and cannot rule out parapneumonic effusion or empyema.
- s/p diagnostic and therapeutic thoracentesis. ; 1000 cc removed
- Labs values consistent with transudative; which is likely secondary to heart failure
#Essential Hypertension
-Previously on atenolol however was discontinued in past secondary to bradycardia
#Hyperlipidemia
- Continue rosuvastatin 5 mg daily
#QTc prolongation.
ECG on arrival with QTc 560 ms. Does not include QTc prolonging agents. K 3.5 and mag 2.1. Holding home beta-song as above. Will monitor on telemetry and trend QTc.
Replete K for goal >4 and magnesium for goal >2
# Persistent atrial fibrillation
- On chronic Coumadin; continue
# history of CVA
- On aspirin 81 mg
Diet -No added salt
DVT - Home warfarin 1.5 mg QPM, INR goal 2-3
Code - DNR
Anticipated Discharge: Today
Subjective/Interval History
-
Date of Service: August 22, 2025
AFVSS. Patient continues to remain bradycardic but asymptomatic
Patient offers no new complaints. States that he is feeling much better today.
Objective Data
-
Labs:
Laboratory Results
08/22/25
01:57
WBC 7.2
Hgb 11.1 L
Hct 34.1 L
Plt Count 227
Sodium 135
Potassium 4.0
Chloride 99
Carbon Dioxide 29
BUN 17
Creatinine 0.9
Glucose 91
Calcium 8.8
Total Bilirubin 1.8 H
AST 30
ALT 13
Alkaline Phosphatase 117
Vital Signs:
Vital Signs
Temp Pulse Resp BP Pulse Ox
97.8 F 40 18 154/69 95
08/22/25 02:16 08/22/25 05:00 08/22/25 02:16 08/22/25 01:46 08/22/25 02:16
I&O
08/21/25 08/22/25 08/23/25
06:59 06:59 06:59
Output Total 300 / 300 725 / 725
Balance -300 / -300 -725 / -725
Review of Systems
-
History Source: Patient
Respiratory: Denies Cough
Cardiac: Denies Chest Pain
Abdomen/GI: Denies Abdominal Pain
Genitourinary: Denies Dysuria
Neuro: Denies Dizzy, Headache or Weakness
Physical Exam
-
General: Well Developed, Well Nourished and No Apparent Distress
Respiratory: Non Labored Respirations and Decreased Breath Sounds (Bilateral lower bases)
Cardiac: Regular Rhythm and Bradycardic
GI: Soft, Nontender and Nondistended
Neuro: Awake, Alert and Oriented
Psych: Calm
Data Reviewed
-
Labs: Labs Reviewed by me, Discussed with Physician and Discussed with Patient
[2025-08-22 07:57] VITALS: BP 132/80
[2025-08-22] MEDS: TYLENOL 650 MG PO ×2 (08:47→12:30)
[2025-08-22] MEDS: NEURONTIN 300 MG PO (08:47)
[2025-08-22] MEDS: ASPIR LOW (ENTERIC COATED) 81 MG PO (08:47)
[2025-08-22] MEDS: LASIX 40 MG IV (08:47)
[2025-08-22] MEDS: FLUSH (NSS) 1 FLUSH IV (08:49)
--- NOTE | 2025-08-22 11:13 | PTCARENOTE ---
received patient this am , patient stated he feels good but remains SOB at times. patient is on RA o2 sat 96%, lung carver clear. monitor shows junctional rhythm, VSS. left back has band aid from puncture site, D/I. patient remains a DNR.
[2025-08-22 11:16] VITALS: BP 137/58
--- NOTE | 2025-08-22 11:46 | PTCARENOTE ---
to chest xray via stretcher as ordered.
--- NOTE | 2025-08-22 11:47 | W.PN.CARDCBS ---
Addendum entered and electronically signed by Walker Ambrocio MD 08/22/25 12:51:
I saw and examined the patient.
The Implementation Director's note was reviewed and I agree with the note.
Comment: \\
GEN: No distress, awake, Ox3
HEENT: supple, anicteric, mmm
LUNGS: CTA, no wheezes/rales
CV: Irreg, S1/S2, 1/6 syst LSB, no gallop
ABD: soft, BS+, NT/ND
EXT: No edema
NEURO: Gross non-focal
SKIN: No rash
Plan:
Overall doing well status post diuresis and thoracentesis. Repeat chest x-ray still has some bilateral effusions. Will try to treat conservatively for now.
Clinically improved and will discharge on Lasix 40 mg twice daily. Check BNP in 1 week.
With his continued effusions I recommended him to follow-up with pulmonary. He has seen Dr. Reynolds in the past.
We reviewed his echo. His ejection fraction is preserved and his aortic valve is overall stable. PA pressures are elevated. We will need to repeat his echo once he is adequately diuresed.
Continue Coumadin for A-fib. He remains in rate controlled A-fib on no AV demian blockers.
Original Note:
Today's Communication / Plan
-
Transition to oral Lasix 40 mg twice daily upon discharge
BMP in 7 to 10 days as outpatient, order placed on chart
Consider repeating chest x-ray as outpatient in 2 to 4 weeks
Outpatient cardiology follow-up arranged
Impression / Plan
-
PCP: Dr. Parra
Preventive Medicine Officer: Dr. Ambrocio
Impression:
Presented 08/20/2025 with shortness of breath and weight gain
Acute on chronic HFpEF, proBNP 489
L pleural effusion
s/p L thoracentesis w/ 1000 cc removed 08/21/2025
Junctional rhythm
h/o tissue AVR/aortic root reconstruction 2017
Persistent atrial fibrillation
Chronic Coumadin anticoagulation
Hypertension
Hyperlipidemia
h/o CVA
Echo 06/24/2024: EF 60 to 65%, bovine AVR with mean gradient of 8 mmHg
Echo 08/21/2025: EF 58%. Mild concentric LVH. Mildly dilated RV with normal systolic function. Well-seated bioprosthetic aortic valve without evidence of paravalvular leak. Peak/mean gradients 11/6 mmHg. Mild MR. Severe pulmonary hypertension
with mild to moderate TR with PAP 49 mmHg
Plan:
Presented 08/20/2025 with weight gain and SOB. Admitted with acute CHF and b/l pleural effusions. ProBNP only 489.
-s/p L thoracentesis 08/21/2025 w/ 1000 cc removed. Feels better. No growth in 24 hours. Cytology pending
-Weight down at least 5 pounds if not more since admission. Current weight 186 pounds.
-Transition to oral Lasix. Patient was on 60 mg orally as outpatient. Would send home om 40 mg BID.
-Creat stable at 0.9 this AM. Electrolytes stable as well.
-Check BMP in 7-10 days
-Echo this admission with preserved EF with well-seated aortic valve without significant paravalvular leak and stable gradients. Severe pulmonary hypertension with mild to moderate TR
-Given pulmonary hypertension would consider follow-up with pulmonary as outpatient. Patient in the past had seen Dr. Hernandez
History of atrial fibrillation with slow ventricular response
-Bradycardia noted, asymptomatic. Currently not on any AV demian blocking agents, would avoid. Previously on atenolol however was discontinued in past secondary to bradycardia.
-No indication for PPM at this time as he remains asymptomatic.
-Chronic anticoagulation with Coumadin. INR 2.33 08/21.
History of hyperlipidemia. Lipids this admission 08/21/2025 TC 102, HDL 39, LDL 52, triglycerides 55. Continue Crestor 5mg daily.
HPI 08/20/2025:
Ben has a history of tissue AVR with a ascending aortic root replacement in October 2017, permanent A-fib on Coumadin, chronic diastolic CHF, hypertension, CVA, hyperlipidemia. He presents with worsening shortness of breath 5 pound weight gain.
This occurred over the last 5 days. Of note he was seen in our office in June [address] of the chest in April 2025 revealed evidence of CHF. He was feeling well at that time. He was reportedly on Lasix 80 mg daily at that time the
patient reports alternating Lasix 80 with 60 mg dosing. Denies chest pain.
Progress Note - Preventive Medicine Officer
Subjective
Date of Service: August 22, 2025
Patient seen and examined. Patient's at bedside. Patient reports overall he is feeling better from shortness of breath standpoint. On room air.
Objective
Labs:
08/22/25 01:57
08/22/25 01:57
Labs
Hgb 11.1 g/dL (13.0-18.0) L 08/22/25 01:57
Hct 34.1 % (39.0-52.0) L 08/22/25 01:57
Plt Count 227 10^3/uL (130-400) 08/22/25 01:57
PT 25.8 Sec (11.4-14.6) H 08/21/25 04:20
INR 2.33 08/21/25 04:20
Sodium 135 mmol/L (135-145) 08/22/25 01:57
Potassium 4.0 mmol/L (3.5-5.1) 08/22/25 01:57
BUN 17 mg/dl (9-20) 08/22/25 01:57
Creatinine 0.9 mg/dL (0.7-1.3) 08/22/25 01:57
Glucose 91 mg/dl (70-99) 08/22/25 01:57
Troponins
08/20/25
11:10
Troponin I 0.022
Vital Signs and I&O:
Vital Signs
Temp Pulse Resp BP Pulse Ox
98.5 F 45 18 137/58 93
08/22/25 11:13 08/22/25 11:16 08/22/25 11:13 08/22/25 11:16 08/22/25 11:16
Vital Signs
Temp Pulse Resp BP Pulse Ox
98.5 F 45 18 137/58 93
08/22/25 11:13 08/22/25 11:16 08/22/25 11:13 08/22/25 11:16 08/22/25 11:16
Intake & Output
08/20/25 08/21/25 08/22/25 08/23/25
06:59 06:59 06:59 06:59
Output Total 300 / 300 725 / 725
Balance -300 / -300 -725 / -725
Physical Exam
Physical Exam
GEN: No distress, awake, Ox3 lying in bed
HEENT: supple, anicteric, mmm
LUNGS: Mildly decreased at left base otherwise CTA, no wheezes/rales
CV: Reg, S1/S2, 2/6 LSB murmur radiating into apex
ABD: soft, BS+, NT/ND
EXT: No edema, clubbing or cyanosis
NEURO: Gross non-focal
SKIN: No rash, warm, dry, pink
--- NOTE | 2025-08-22 13:25 | CM ---
Reviewed chart. Met with and Mrs. Vegas to review discharge plans. He states he is feeling better and maybe able to go home soon. We reviewed [facility] and at this time he declining [facility] Services at this time. Prior to admission he
resides with his spouse in a one story home with one step to enter. He resides in a 55 [address] [facility]. He has been there since 2001. Prior to admission he was independent with ambulation and adls. He has an INR machine at home and no
other DME. Cardiology Coumadin clinic manages his INR. He has a prescription plan and uses [facility]. He has [facility] Services after his heart surgery. Medical work-up in progress. The discharge plan is to return home with his spouse when medically
stable.
[2025-08-22 14:33] VITALS: BP 130/57
--- NOTE | 2025-08-22 14:50 | W.DCSUMMARY ---
Addendum entered and electronically signed by Yanet Shaikh MD 08/22/25 18:29:
Read, reviewed, and agree. See same day progress note for additional details. Time spent coordinating care, DC planning, review of DC plan of care with resident, transition of care, review of records in EMR, med rec, consults, notes, d/w
consultants, nursing, family, and CM= 34 minutes
Original Note:
Discharge Summary
Discharge Data
Date of Admission: 08/20/25
Date of Discharge: 08/22/25
-
Pending Results: No
Hospital Course
Discharging Physician : Abe Sebastian MD ; Yanet Shaikh MD
Disposition : Home
Primary care physician : Heladio Parra
Principal Discharge diagnosis : Acute on chronic HFpEF
Junctional bradycardia with chronic atrial fibrillation
Moderate left pleural effusion
QTc prolongation
Chronic Discharge diagnosis : Essential hypertension, hyperlipidemia, chronic A-fib, history of CVA
Hospital Course : 80-year-old male with HFpEF, persistent AF on warfarin, HTN, HLD, neuropathy, ED, hypogonadism, s/p TAVR and aortic root repair, PVD s/p LLE vein stripping, H/O left occipital CVA presented with shortness of breath. Workup
indicated exacerbation of heart failure as well as accumulation of left pleural effusion.
1- Acute on chronic HFpEF.
Initial workup showed that proBNP was at 459. Cardiology team was consulted and he was placed on IV Lasix which was later changed to p.o. and he was discharged at 40 mg twice a day per cardiology recommendation. He also had an echocardiogram
during the hospital stay which showed preserved ejection fraction however since he is on IV diuresis during the hospital stay it was recommended that he should get a repeat after getting adequate diuresis. Also advised to limit salt in the diet
2- Junctional bradycardia.
His initial heart rate was 45 in the emergency which continues to remain in the 40s and with couple of episodes when he was in the 30s. Cardiology team was following it closely however given that there was no symptoms it was recommended that there
is no indication for pacer implant. He was using atenolol in the past which was discontinued for same reason in the past recommendations to continue warfarin which she is using for A-fib
3- Moderate left pleural effusion.
Periodic chest x-rays showed accumulation of left pleural effusion. Interventional radiology was consulted and IR thoracocentesis was performed and 1000 cc fluid was removed. Lab studies were performed which showed that the fluid was transudative
in nature which is likely secondary to the heart failure. Repeat chest x-ray showed there was some residual left pleural effusion however decision was made to manage it conservatively. At the time of discharge he was also advised to follow-up
outpatient with pulmonology team
4- Essential Hypertension
He was previously on atenolol however was discontinued in past secondary to bradycardia. His blood pressure remained stable during the hospital stay
5- Hyperlipidemia
He was continued on his home rosuvastatin 5 mg daily
6- QTc prolongation.
ECG on arrival with QTc 560 ms. He was monitored on telemetry with no apparent abnormalities
7- Persistent atrial fibrillation
Was maintained and advised to continue chronic Coumadin(brand-name)
8- History of CVA
He was continued on aspirin 81 mg during of the hospital stay
Important imaging findings : Chest x-ray 08/17/2025 :
IMPRESSION:
Small to moderate left pleural effusion. This effusion appears slightly greater in size on the frontal view, although similar in appearance on the lateral view.
Parenchymal opacity within the left lower lung, likely compressive atelectasis.
Small right pleural effusion, stable.
Cardiomegaly with no convincing evidence for active vascular congestion.
Chest x-ray 08/20/2025:
IMPRESSION:
1. Moderate interstitial and alveolar cardiogenic pulmonary edema.
2. Moderate-sized left pleural effusion.
3. Small right pleural effusion.
4. Mild cardiomegaly.
5. Previous aortic valve replacement.
Chest x-ray 08/21/2024:
IMPRESSION:
1. No radiographic evidence for pneumothorax following left thoracentesis.
2. Resolution of the previously visualized left pleural effusion.
3. Small right pleural effusion.
4. Mild to moderate interstitial and alveolar cardiogenic pulmonary edema.
5. Moderate cardiomegaly.
6. Previous surgical aortic valve replacement.
Chest x-ray 08/22/2025:
Congestive heart failure. Slightly increased left pleural effusion
Procedure findings : Successful ultrasound-guided thoracentesis, yielding 1000 cc of clear gold pleural fluid.
TRANSTHORACIC ECHOCARDIOGRAM REPORT:
SUMMARY
1. Normal left ventricular size with normal LV systolic function. Estimated left medical ejection fraction is 58%. Moderate concentric left ventricular hypertrophy. Diastolic function is indeterminate.
2. Mildly dilated right ventricle with normal systolic function.
3. Bioprosthetic aortic valve is noted which is well-seated without evidence of paravalvular leak. Transaortic peak and mean gradients are 11 and 6 mmHg, respectively.
4. Mild thickening of mitral valve leaflets with mild mitral regurgitation.
5. Mild to moderate tricuspid regurgitation with severe pulmonary hypertension. Estimated pulmonary artery systolic pressure of 49 mmHg, assuming a right atrial pressure of 15 mmHg.
6. Compared to prior echocardiogram from June 2024, TR is worse with higher pulmonary artery systolic pressure. IVC is dilated on the study and does not collapse.
Discharge Plan
-
Patient Disposition: Home (Routine Discharge)
Discharge Diagnosis/Procedures: Acute on chronic HFpEF
Junctional bradycardia with chronic atrial fibrillation
Moderate left pleural effusion
QTc prolongation
Condition: Good
Diet: Low Sodium
Activity: As tolerated
Driving Restrictions: As prior to admission
Bathing Restrictions: None
Blood Work: Basic metabolic panel and proBNP 7-10 days following discharge
Instructions: *[facility] Heart Failure Instructions
Referrals:
Pooja Ventura PA-C [Specified Professional Personl, Cardiology] - 09/05/25 2:40 pm
Referral Note: You have cardiology follow-up with Pooja Ventura PA-C with Dr. Ambrocio's office on September 05 at 2:40 PM in [place] [address] and [facility] which [facility] behind [facility]. If you are unable to make this appointment please
call [phone] to reschedule
Miles Hernandez MD [Active, Pulmonary Medicine] - in one to two weeks
Heladio Parra MD [Family Provider, Family Practice] - in less than 1 week
Additional Discharge Medication Instructions: Take furosemide 40 mg 1 tablet by mouth twice daily
Please follow-up with your outpatient family doctor within 1 week
Please follow-up with cardiology team on 09/05/2025 at 2:40 PM
Please follow-up with pulmonology team in 1 to 2-week
Consider SGLT2i in further GDMT per LVEF with outpatient cardiology follow-up
If you develop any new symptoms or worsening of any current symptoms please reach out to your family doctor or return to the hospital
Prescriptions:
New
furosemide [Lasix] 40 mg tablet
40 mg PO BID Qty: 60 0RF
Continued
gabapentin 300 MG capsule
300 mg PO BID
Magnilife Pain Relieving Foot cream
1 applic topical DAILY
potassium chloride [Klor-Con M20] 20 MEQ tablet,ER particles/crystals
10 meq PO DAILY
warfarin [Jantoven] 1 mg tablet
1.5 mg PO DAILY
rosuvastatin 5 mg tablet
5 mg PO QPM
aspirin 81 MG tablet,delayed release (DR/EC)
81 mg PO DAILY
lidocaine 1 PATCH adhesive patch,medicated
1 patch topical DAILY
Discontinued
furosemide 40 MG tablet
60 mg PO DAILY
Discharge Orders:
Discharge Patient (As Directed); Ordered 08/22/25
Ordered By: Abe Sebastian
Care Plan Goals
Care Plan Goals:
Problem: Readiness for enhanced knowledge related to diagnosis and treatment plan
Goal: Understand your diagnosis and treatment plan needs, including medications if applicable.
Instructions: Know your diagnosis, underlying causes and treatment plan options, including medications if applicable. Consult with your health care team to learn about your diagnosis and treatment plan, including medications if applicable.
Discharge Date and Time
Print Language: FRISIAN
--- NOTE | 2025-08-22 15:11 | PTCARENOTE ---
D/C instructions given to patient and , both verbalizes understanding. INT D/C'd, telemetry D/C'd, personal belongings packed and sent home with patient. D/C to home via wc accompanied by staff.
--- NOTE | 2025-08-23 15:48 | W.HF.CON ---
Heart Failure
- LV Function
Left ventricular function study result: LV Ejection fraction >/= 50%
Ejection Fraction Percentage: 58
- ARNI
Patient already on ARNI: No
Heart Failure ARNI Not Indicated: LV Ejection Fraction >/= 40%
- ACEI/ARB
Patient already on ACEI/ARB: No
Heart Failure ACEI/ARB Not Indicated: LV Ejection Fraction > 40%
- Beta Henry
Patient already on Evidence Based Beta Henry: No
Heart Failure Evidence Based Beta Henry Not Indicated: LV Ejection Fraction > 40%
- Mineralocorticord Receptor Antagonist
Patient already on MRA: No
Heart Failure MRA Not Indicated: LV Ejection Fraction > 40%
- SGLT-2 Inhibitor
Patient already on SGLT-2 Inhibitor: No
Heart Failure SGLT-2 Inhibitor Not Indicated: LV Ejection Fraction >40%
- Afib Anticoagulation
Patient already on Anticoagulation for Afib: Yes
- NYHA CHF Classification
NYHA CHF Classification Level: Class III - Symptoms w/ min exertion, interferes w/ nml daily activity (severe pulmonary HTN)
- ACC/AHA Stage
ACC/AHA Stage: Stage C: Symptomatic Heart Failure
== END 2025-08-22 15:13 | disposition home or self-care (01) | DRG 291 ==
LOC: IVU 14:48
PROVIDERS: Radiology Vascular & Interventional Radiology; ADMITTING PHYSICIAN Internal Medicine; ATTENDING PHYSICIAN Internal Medicine; CONSULT PHYSICIAN Internal Medicine Cardiovascular Disease; EMERGENCY PHYSICIAN Emergency Medicine; FAMILY PHYSICIAN Family Medicine
PROC: 0W9B3ZZ Drainage of Left Pleural Cavity, Percutaneous Approach (ICD-10-PCS; 2025-08-21)
DX: I11.0 Hypertensive heart disease with heart failure (principal); I50.33 Acute on chronic diastolic (congestive) heart failure; I48.21 Permanent atrial fibrillation; J98.11 Atelectasis; Z11.52 Encounter for screening for COVID-19; Z66 Do not resuscitate; Z79.01 Long term (current) use of anticoagulants; Z86.73 Personal history of transient ischemic attack (TIA), and cerebral infarction without residual deficits; I27.20 Pulmonary hypertension, unspecified; I71.21 Aneurysm of the ascending aorta, without rupture; Z79.82 Long term (current) use of aspirin; Z79.899 Other long term (current) drug therapy; Z87.891 Personal history of nicotine dependence; E78.5 Hyperlipidemia, unspecified
CPT/HCPCS: 32555; 71045; 71046; 80053; 80061; 82042; 82945; 83615; 83735; 83880; 83986; 84157; 84484; 85025; 85027; 85610; 87015; 87070; 87205; 87502; 87811; 88112; 88305; 89051; 93005; 93306; 99284; 99285

== ENCOUNTER → 2025-09-01 09:01 | Outpatient (REF) | payer MEDICARE, BC, SELFPAY | LOC: RAD 09:01 | PROVIDERS: ATTENDING PHYSICIAN Internal Medicine Critical Care Medicine; FAMILY PHYSICIAN Family Medicine; REFERRING PHYSICIAN Internal Medicine Cardiovascular Disease | DX: J90 Pleural effusion, not elsewhere classified (principal) | CPT/HCPCS: 71046 ==